=== PATIENT | male | born 1950 | race Caucasian/White ===

== ENCOUNTER 2018-12-11 10:22 | Inpatient (IN) | payer MEDICAID, OTHER ==
[~2018-12-11] VITALS: Ht 170.2 cm; Wt 103.0 kg
[~2018-12-11 10:22] MED LIST: ADVAIR 250-501 EACH INH; ALBUTEROL2.5 MG/3 M INH; AMBIEN5 MG ORAL; AZITHROMYCIN250 MG ORAL; AZITHROMYCIN500 MG ORAL; DOCUSATE SODIU100 MG ORAL; DULERA 100 MCG/13 GM INH; DULERA 200 MCG/13 GM IH; IBUPROFEN600 MG ORAL; NORCO 5-325 TA1 EACH ORAL; PREDNISONE20 MG ORAL; PROAIR HFA8.5 GM INH; SINGULAIR10 MG ORAL; SPIRIVA18 MCG INH
[2018-12-11] MEDS ORDERED: Solu-MEDROL 125mg Inj IVP ONE (11:00)
--- NOTE | 2018-12-11 11:10 | NUR ---
ED Nurse Note:pt. came with c/o SOB and COPD exacerbation for 3 days, blood was sent to labs and pt. placed on [employer] per Er MD order, respiratory called
[2018-12-11] MEDS: Ipratropium 0.02% Inh Soln 2.5ml UD HHN SCH ×3 (11:23→12:21)
[2018-12-11] MEDS: Albuterol ud Inhalation HHN SCH ×3 (11:23→12:21)
[2018-12-11 11:33] LABS: BASOPHILS % (AUTO) 1.2 % (0.0-2.0); EOSINOPHILS % (AUTO) 5.2 % (0.0-3.0); HEMATOCRIT 49.8 % (42.0-52.0); HEMOGLOBIN 16.3 G/DL (14.2-18.0); LYMPHOCYTES % (AUTO) 22.7 % (20.0-45.0); MEAN CORPUSCULAR VOLUME 93 FL (80-99); MONOCYTES % (AUTO) 7.5 % (1.0-10.0); NEUTROPHILS % (AUTO) 63.4 % (45.0-75.0); PLATELET COUNT 199 K/UL (150-450); RED BLOOD COUNT 5.37 M/UL (4.70-6.10); RED CELL DISTRIBUTION WIDTH 13.4 % (11.6-14.8); WHITE BLOOD COUNT 9.6 K/UL (4.8-10.8)
[2018-12-11 11:48] LABS: ANION GAP 5 mmol/L (5-15); BLOOD UREA NITROGEN 20 mg/dL (7-18); CALCIUM 8.8 MG/DL (8.5-10.1); CARBON DIOXIDE 29 MMOL/L (21-32); CHLORIDE 105 MMOL/L (98-107); CREATININE 1.2 MG/DL (0.55-1.30); POTASSIUM 4.2 MMOL/L (3.5-5.1); SODIUM 139 MMOL/L (136-145)
[2018-12-11 11:53] LABS: ALANINE AMINOTRANSFERASE 26 U/L (12-78); ALBUMIN 3.6 G/DL (3.4-5.0); ALBUMIN/GLOBULIN RATIO 1.1 (1.0-2.7); ALKALINE PHOSPHATASE 76 U/L (46-116); ASPARTATE AMINO TRANSFERASE 12 U/L (15-37); BILIRUBIN,TOTAL 0.4 MG/DL (0.2-1.0)
[2018-12-11 12:00] VITALS: BP 122/64
--- NOTE | 2018-12-11 12:24 | NUR ---
RESPIRATORY NOTE: Manually scanned last dose of breathing tx. Scanner not working
--- NOTE | 2018-12-11 12:39 | Diagnostic Imaging Report ---
Indication: Cough Comparison: 12/22/2015 A single view chest radiograph was obtained. Findings: Cardiomediastinal appearance is within normal limits for age. The lungs appear hyperinflated without infiltrate. Pulmonary vascularity is appropriate. The diaphragmatic contour is smooth and costophrenic angles are sharp. No pleural effusions are identified. The bones are unremarkable. Impression: No acute findings
--- NOTE | 2018-12-11 12:58 | NUR ---
ED Nurse Note: pt tolerating hhn well from resp therapist. pt aware and agrees to plan for hopital admission. no increased dyspnea c/o
[2018-12-11 13:00] VITALS: BP 122/64
[2018-12-11] MEDS ORDERED: Albuterol ud Inhalation HHN ONE (13:30)
--- NOTE | 2018-12-11 13:41 | Emergency Room Report ---
History of Present Illness General Chief Complaint: Upper Respiratory Illness Source: Patient Present Illness HPI Patient presents emergency department today complaint acute onset of shortness of breath. Patient states that he has a history of COPD has been using all his medications without improvement. States he feels really short of breath which is why he came for further evaluation. Patient states that he cannot ambulate he is coughing he cannot breathe. He complains of some yellowish sputum. No other complaints noted. Symptoms noted to be severe. Denies any leg pain leg swelling. No other modifying factors. No other associated signs and symptoms. No other complaints were noted. Allergies: Coded Allergies: No Known Allergies (Unverified , 09/12/11) Patient History Past Medical History: asthma, COPD Past Surgical History: none Pertinent Family History: none Social History: Denies: smoking, alcohol use, drug use Reviewed Nursing Documentation: PMH: Agreed; PSxH: Agreed Nursing Documentation-PMH Past Medical History: No History, Except For Hx Asthma: Yes Hx COPD: Yes Review of Systems All Other Systems: negative except mentioned in HPI Physical Exam Vital Signs Date Time Temp Pulse Resp B/P (MAP) Pulse Ox O2 Delivery O2 Flow Rate FiO2 12/11/18 10:27 98.4 70 19 121/82 (95) 89 Room Air 12/11/18 12:17 21 Sp02 EP Interpretation: reviewed, normal General Appearance: normal inspection, well appearing, no apparent distress, alert Head: atraumatic Eyes: bilateral eye normal inspection ENT: normal ENT inspection, hearing grossly normal, normal voice Neck: normal inspection, full range of motion, supple, no bony tend Respiratory: respiratory distress, decreased breath sounds, accessory muscle use, wheezing Cardiovascular #1: regular rate, rhythm, no edema Gastrointestinal: normal inspection, normal bowel sounds, non tender, soft, no guarding, no hernia Genitourinary: no CVA tenderness Musculoskeletal: normal inspection, back normal, normal range of motion Neurologic: normal inspection, alert, responsive, speech normal Psychiatric: normal inspection, judgement/insight normal, mood/affect normal Skin: no rash Procedures Critical Care Time Critical Care Time Patient had a critical medical condition which untreated could potentially result in life or limb threatening injury. Total critical care time excluding procedures was approximately 45 minutes. Medical Decision Making Diagnostic Impression: Primary Impression: COPD exacerbation Additional Impressions: Respiratory distress Hypoxia ER Course Patient presents emergency department today complaining of shortness of breath. Differential diagnoses include acute pneumonia, CHF, acute coronary syndrome, pneumothorax, asthma, COPD flare, just to name a few. Patient has severe shortness of breath. Was started on 3 treatments albuterol Atrovent as well as Solu-Medrol. Patient appeared to be improving and at first I thought patient could be admitted to [facility]. But unfortunately patient began to deteriorate again. O2 saturation dropped down to the low 90s. Because of that patient was started on albuterol treatment as scanned. Patient' s current O2 saturation is 91. Because of this patient was unstable for transfer. Case was discussed with patient's insurance group. Patient will be admitted here to telemetry of further management. Will admit the patient to because of call panel. Labs Test 12/11/18 11:20 White Blood Count 9.6 K/UL (4.8-10.8) Red Blood Count 5.37 M/UL (4.70-6.10) Hemoglobin 16.3 G/DL (14.2-18.0) Hematocrit 49.8 % (42.0-52.0) Mean Corpuscular Volume 93 FL (80-99) Mean Corpuscular Hemoglobin 30.3 PG (27.0-31.0) Mean Corpuscular Hemoglobin Concent 32.7 G/DL (32.0-36.0) Red Cell Distribution Width 13.4 % (11.6-14.8) Platelet Count 199 K/UL (150-450) Mean Platelet Volume 8.3 FL (6.5-10.1) Neutrophils (%) (Auto) 63.4 % (45.0-75.0) Lymphocytes (%) (Auto) 22.7 % (20.0-45.0) Monocytes (%) (Auto) 7.5 % (1.0-10.0) Eosinophils (%) (Auto) 5.2 % (0.0-3.0) Basophils (%) (Auto) 1.2 % (0.0-2.0) Sodium Level 139 MMOL/L (136-145) Potassium Level 4.2 MMOL/L (3.5-5.1) Chloride Level 105 MMOL/L (98-107) Carbon Dioxide Level 29 MMOL/L (21-32) Anion Gap 5 mmol/L (5-15) Blood Urea Nitrogen 20 mg/dL (7-18) Creatinine 1.2 MG/DL (0.55-1.30) Estimat Glomerular Filtration Rate > 60 mL/min (>60) Glucose Level 104 MG/DL (74-106) Calcium Level 8.8 MG/DL (8.5-10.1) Total Bilirubin 0.4 MG/DL (0.2-1.0) Aspartate Amino Transf (AST/SGOT) 12 U/L (15-37) Alanine Aminotransferase (ALT/SGPT) 26 U/L (12-78) Alkaline Phosphatase 76 U/L (46-116) Troponin I 0.002 ng/mL (0.000-0.056) Total Protein 7.0 G/DL (6.4-8.2) Albumin 3.6 G/DL (3.4-5.0) Globulin 3.4 g/dL Albumin/Globulin Ratio 1.1 (1.0-2.7) EKG Diagnostic Results Rate: normal Rhythm: NSR ST Segments: no acute changes Rhythm Strip Diag. Results EP Interpretation: yes Rate: 65 Rhythm: NSR, no PVC's, no ectopy Chest X-Ray Diagnostic Results Chest X-Ray Diagnostic Results : Chest X-Ray Ordered: Yes # of Views/Limited/Complete: 1 View Indication: Shortness of Breath EP Interpretation: Yes Interpretation: no consolidation, no effusion, no pneumothorax, no acute cardiopulmonary disease Impression: No acute disease Electronically Signed by: Electronically signed by Aj Yates MD Last Vital Signs Date Time Temp Pulse Resp B/P (MAP) Pulse Ox O2 Delivery O2 Flow Rate FiO2 12/11/18 12:17 68 19 100 Room Air 21 12/11/18 10:27 98.4 121/82 (95) Status: improved Disposition: ADMITTED INPATIENT Condition: Serious Referrals: [facility]ERR[facility] (PCP) Aj Yates MD Dec 11, 2018 13:41
[2018-12-11] MEDS ORDERED: Levofloxacin 500mg tab ORAL ONE (13:45)
--- NOTE | 2018-12-11 13:46 | History and Physical ---
History of Present Illness General Date patient seen: Dec 11, 2018 Reason for Hospitalization: Upper Respiratory Illness Present Illness HPI 68 year old male with history of Asthma/COPD on home oxygen presented to the emergency department with SOB, cough of yellow phlegm, without improvement with his home inhalers. He often uses steroids for exacerbations. He is unable cooper ambulate due to severe sob. No fevers or chills. No chest pain, palpitations, pnd, or orthopnea. He takes albuterol, Advair, montelukast and Ventolin at home. Denies any recent travel or sick contacts Past Medical History: Asthma, COPD Past Surgical History: none Family History: Asthma Social History: Denies: smoking, alcohol use, drug use Allergies: Coded Allergies: No Known Allergies (Unverified , 09/12/11) Medication History Scheduled Fluticasone/Salmeterol (Advair 250-50 Diskus), 1 PUFF INH EVERY 12 HOURS, ( Reported) Montelukast Sodium* (Singulair*), 10 MG ORAL QHS, (Reported) Umeclidinium [place] (Incruse Ellipta), 62.5 MCG IH DAILY, (Reported) Scheduled PRN Albuterol Sulfate* (Albuterol Sulfate Hhn*), 3 ML INH Q4H PRN for Shortness of Breath, (Reported) Albuterol Sulfate* (Albuterol Sulfate Mdi*), 2 PUFF INH Q4H PRN for Shortness of Breath, (Reported) Discontinued Medications Albuterol Sulfate* (Proair Hfa*), 1 PUFF INH Q6H PRN for Shortness of Breath Discontinued Reason: Pt stopped taking med Albuterol Sulfate* (Albuterol Sulfate Hhn*), 3 ML INH BID Discontinued Reason: Pt stopped taking med Albuterol Sulfate* (Proair Hfa*), 2 PUFFS INH Q6H Discontinued Reason: Pt stopped taking med Albuterol Sulfate* (Proair Hfa*), 2 PUFFS INH Q4H Discontinued Reason: Pt stopped taking med Albuterol Sulfate* (Albuterol Sulfate Hhn*), 3 ML INH Q4H PRN for Shortness of Breath Discontinued Reason: Pt stopped taking med Azithromycin (Azithromycin), 500 MG ORAL DAILY Discontinued Reason: Pt stopped taking med Azithromycin* (Zithromax*), 250 MG ORAL DAILY Discontinued Reason: Pt stopped taking med Docusate Sodium* (Docusate Sodium*), 100 MG ORAL DAILY Discontinued Reason: Pt stopped taking med Fluticasone/Salmeterol (Advair 250-50 Diskus), 1 PUFF INH EVERY 12 HOURS Discontinued Reason: Pt stopped taking med Fluticasone/Salmeterol (Advair 250-50 Diskus), 1 PUFF INH EVERY 12 HOURS Discontinued Reason: Pt stopped taking med Hydrocodone Bit/Acetaminophen 5-325* ([place] 5-325*), 1 TAB ORAL Q12HR PRN for For Pain Discontinued Reason: Pt stopped taking med Ibuprofen* (Motrin*), 600 MG ORAL Q8H PRN for For Pain Discontinued Reason: Pt stopped taking med Mometasone/Formoterol (Dulera 100 Mcg/5 Mcg Inhaler), 2 PUFFS INH EVERY 12 HOURS , (Reported) Discontinued Reason: Pt stopped taking med Mometasone/Formoterol (Dulera 200 Mcg/5 Mcg Inhaler), 13 GM IH BID Discontinued Reason: Pt stopped taking med Montelukast Sodium* (Singulair*), 10 MG ORAL DAILY Discontinued Reason: Pt stopped taking med Prednisone* (Prednisone*), 60 MG ORAL DAILY Discontinued Reason: Pt stopped taking med Prednisone* (Prednisone*), 20 MG ORAL BID Discontinued Reason: Pt stopped taking med Tiotropium [place]* (Spiriva*), 1 PUFF INH DAILY Discontinued Reason: Pt stopped taking med Tiotropium [place]* (Spiriva*), 1 PUFF INH DAILY Discontinued Reason: Pt stopped taking med Zolpidem Tartrate* (Ambien*), 5 MG ORAL BEDTIME PRN for Insomnia, (Reported) Discontinued Reason: Pt stopped taking med Patient History Healthcare decision maker Resuscitation status Advanced Directive on File Review of Systems Constitutional: Denies: no symptoms, see HPI, chills, sweats, fever, malaise, weakness, other Eye: Denies: no symptoms, see HPI, eye pain, blurred vision, tearing, double vision, nose pain, nose congestion, acuity changes, discharge, other Respiratory: Reports: no symptoms, see HPI, orthopnea, shortness of breath, stridor, VALDEZ, sputum - yellow , other Cardiovascular: Denies: no symptoms, see HPI, chest pain, edema, palpitations, syncope, PND, other Gastrointestinal: Denies: no symptoms, see HPI, abdominal pain, constipation, diarrhea, nausea, vomiting, melena, hematemesis, other Genitourinary: Denies: no symptoms, see HPI, discharge, dysuria, frequency, hematuria, pain, retention, incontinence, urgency, vag bleed/dc, other Musculoskeletal: Denies: no symptoms, see HPI, back pain, gout, joint pain, joint swelling, muscle pain, muscle stiffness, other Skin: Denies: no symptoms, see HPI, rash, change in color, change in hair/nails , dryness, lesions, other Psychiatric: Denies: no symptoms, see HPI, prior hx, anxiety, depressed feelings, emotional problems, SI, HI, hallucinations, other Neurological: Denies: no symptoms, see HPI, headache, numbness, paresthesia, seizure, tingling, tremors, focal weakness, syncope, dizziness, other Endocrine: Denies: no symptoms, see HPI, excessive sweating, flushing, intolerance to temperature, increased thirst, increased urine, unexplained weight loss, other Hematologic/Lymphatic: Denies: no symptoms, see HPI, anemia, blood clots, easy bleeding, easy bruising, swollen glands, diathesis, other Physical Exam Physical Exam Narrative General Appearance: normal inspection, well appearing, no apparent distress, alert HEENT: PERRLA Neck: No jvd Respiratory: respiratory distress, decreased end expiratory sounds, accessory muscle use, wheezing, rhonchi, speaks in short sentences Cardiovascular : regular rate, rhythm, no m/r/g, no edema Gastrointestinal: normal inspection, normal bowel sounds, non tender, soft, no guarding Musculoskeletal: normal inspection, back normal, normal range of motion Neurologic: grossly normal Psychiatric: judgement/insight normal, mood/affect normal Skin: no rash, no ulcer Last 24 Hour Vital Signs Date Time Temp Pulse Resp B/P (MAP) Pulse Ox O2 Delivery O2 Flow Rate FiO2 12/11/18 13:43 73 12 95 Room Air 21 71 11 90 12/11/18 12:17 68 19 100 Room Air 21 12/11/18 12:17 68 19 100 Room Air 21 12/11/18 10:30 70 19 Room Air 12/11/18 10:27 98.4 70 19 121/82 (95) 89 Room Air Laboratory Tests Test 12/11/18 11:20 White Blood Count 9.6 K/UL (4.8-10.8) Red Blood Count 5.37 M/UL (4.70-6.10) Hemoglobin 16.3 G/DL (14.2-18.0) Hematocrit 49.8 % (42.0-52.0) Mean Corpuscular Volume 93 FL (80-99) Mean Corpuscular Hemoglobin 30.3 PG (27.0-31.0) Mean Corpuscular Hemoglobin Concent 32.7 G/DL (32.0-36.0) Red Cell Distribution Width 13.4 % (11.6-14.8) Platelet Count 199 K/UL (150-450) Mean Platelet Volume 8.3 FL (6.5-10.1) Neutrophils (%) (Auto) 63.4 % (45.0-75.0) Lymphocytes (%) (Auto) 22.7 % (20.0-45.0) Monocytes (%) (Auto) 7.5 % (1.0-10.0) Eosinophils (%) (Auto) 5.2 % (0.0-3.0) H Basophils (%) (Auto) 1.2 % (0.0-2.0) Sodium Level 139 MMOL/L (136-145) Potassium Level 4.2 MMOL/L (3.5-5.1) Chloride Level 105 MMOL/L (98-107) Carbon Dioxide Level 29 MMOL/L (21-32) Anion Gap 5 mmol/L (5-15) Blood Urea Nitrogen 20 mg/dL (7-18) H Creatinine 1.2 MG/DL (0.55-1.30) Estimat Glomerular Filtration Rate > 60 mL/min (>60) Glucose Level 104 MG/DL (74-106) Calcium Level 8.8 MG/DL (8.5-10.1) Total Bilirubin 0.4 MG/DL (0.2-1.0) Aspartate Amino Transf (AST/SGOT) 12 U/L (15-37) L Alanine Aminotransferase (ALT/SGPT) 26 U/L (12-78) Alkaline Phosphatase 76 U/L (46-116) Troponin I 0.002 ng/mL (0.000-0.056) Total Protein 7.0 G/DL (6.4-8.2) Albumin 3.6 G/DL (3.4-5.0) Globulin 3.4 g/dL Albumin/Globulin Ratio 1.1 (1.0-2.7) Height (Feet): 5 Height (Inches): 7.00 Weight (Pounds): 220 Medications Current Medications Medications (Trade) Dose Ordered Sig/Hayley Route PRN Reason Start Time Stop Time Status Last Admin Dose Admin Levofloxacin (Levaquin) 500 mg ONCE ONCE ORAL 12/11/18 13:45 12/11/18 13:46 Objective Narrative ECG: strip reviewed by me: NSR at 65 bmpm, 1st degree AV block, QTC 435 ms CXR: Hyperinflated lungs, no consolidation or effusion Assessment/Plan Problem List: (1) COPD exacerbation ICD Codes: J44.1 - Chronic obstructive pulmonary disease with (acute) exacerbation SNOMED: 589341303 (2) Hypoxia ICD Codes: R09.02 - Hypoxemia SNOMED: 317676197 (3) Acute bronchitis ICD Codes: J20.9 - Acute bronchitis,unspecified SNOMED: 53852273 (4) Asthma ICD Codes: J45.909 - Unspecified asthma, uncomplicated SNOMED: 221321881 (5) Respiratory distress ICD Codes: R06.03 - Acute respiratory distress SNOMED: 998261535 Status: stable Assessment/Plan: 68 year old male with history of COPD on home oxygen admitted with Acute hypoxic respiratory failure due to COPD/Asthma exacerbation. Observation on telemetry IV methylpred 60 q 6hr, taper per clinical response IV Azithromycin 500mg daily Duonebs LABA/ICS-> continue home Advair hold home Spiriva since getting duonebs here continue montelukast pxx: vte ppx: heparin Gi ppx: famotidine Diet: Regular Disposition: Home I spent 70 minutes during this encounter. > 50% spent on counselling and care coordination. Case discussed with ER physician Dr. Yates, and RN. I spent an additional 31 minutes reviewing old records Time of this note may not reflect time of encounter Cl Kiser M.D. Dec 11, 2018 13:46
[2018-12-11 14:00] VITALS: BP 123/61
[2018-12-11] MEDS ORDERED: Milk of Magnesia 30ml Ud ORAL PRN (14:00)
[2018-12-11] MEDS ORDERED: Miralax 17gm pkt ORAL PRN (14:00)
[2018-12-11] MEDS ORDERED: HYDROmorphone 1mg/ml Carpuject IVP PRN (14:00)
[2018-12-11] MEDS ORDERED: LORazepam Inj 2mg/ml 1ml IV PRN (14:00)
[2018-12-11 15:00] VITALS: BP 120/58
--- NOTE | 2018-12-11 15:27 | NUR ---
ED Nurse Note: pt relates no hx admission <30 days and arrives from home. doesnt meet admission swab criteria.
[2018-12-11] MEDS ORDERED: SINGULAIR10 MG ORAL (15:33)
[2018-12-11] MEDS ORDERED: ADVAIR 250-501 EACH INH (15:33)
[2018-12-11] MEDS ORDERED: ALBUTEROL2.5 MG/3 M INH (15:33)
[2018-12-11] MEDS ORDERED: INCRUSE ELLI62.5 MCG IH (15:33)
[2018-12-11] MEDS ORDERED: ALBUTEROL SULF8.5 GM INH (15:33)
--- NOTE | 2018-12-11 15:34 | NUR ---
ED Nurse Note: pt relates he is feeling improved respiratory status but continued dyspnea noted when speaking full sentences and with movement.. med recon doen
--- NOTE | 2018-12-11 17:00 | NUR ---
NURSE NOTES: Patient received from Mariel. Patient stable AOx4 with no complaints of pain and no s/sx of distress. RR even and unlabored with BL wheezes. Pt wearing dentures. Phone at bedside. Call light within reach, bed low and locked. Will continue to monitor.
[2018-12-11] MEDS: Enoxaparin 40mg Inj SUBQ SCH (17:36)
--- NOTE | 2018-12-11 18:32 | NUR ---
CASE MANAGEMENT: REVIEW 68 Y/O MALE PRESENTED TO ED FROM HOME CC: SOB . COUGH X3 DAYS SI: COPD EXACERBATION T 98.4 HR 70 RR 19 BP 121/82 SAT 89% ROOM AIR 93% 2L/NC A-GAP 20 AST 12 IS: ATROVENT HHN X1 ALBUTEROL HHN X1 SOLU MEDROL IV X1 LEVAQUIN PO X1 PATIENT ADMITTED TO TELEMETRY UNIT 11/09/2018 DCP: PATIENT IS FROM HOME
[2018-12-11] MEDS: Albuterol/Ipratropium 3ml neb HHN PRN ×2 (19:43→23:58)
--- NOTE | 2018-12-11 19:53 | NUR ---
NURSE NOTES: Received patient from NEREYDA Bae. Patient in bed, resting comfortably. Talkative, AOx4, and able to make needs known. Patient ambulates with bathroom privileges. No signs of shortness of breath, distress, or pain noted. Patient on 2L NC, currently receiving breathing treatment. IV site checked, intact and patent, no signs of infiltration, bleeding, or redness noted. Bed in lowest position, brakes on, side rails up x2, and call light within reach. Will continue with plan of care.
[2018-12-11 20:00] VITALS: BP 137/66
--- NOTE | 2018-12-11 20:13 | NUR ---
HAND-OFF: Report given to Rosalia Rooney RN. Patient stable, receiving breathing treatment.
[2018-12-11] MEDS: Wixela 250/50 Inhaler - 60 dose INH SCH (21:00)
[2018-12-11] MEDS: Docusate 100mg cap ORAL SCH (21:00)
[2018-12-11] MEDS: Montelukast 10mg tablet ORAL SCH (21:14)
[2018-12-11] MEDS: Azithromycin 500 MG in D5W 275 ML IV SCH (21:15)
[2018-12-12] VITALS: BP 123/70
[2018-12-12 04:00] VITALS: BP 116/59
[2018-12-12] MEDS: Solu-MEDROL 125mg Inj IVP SCH ×4 (06:34→21:48)
--- NOTE | 2018-12-12 07:31 | NUR ---
HAND-OFF: Report given to NEREYDA Garza. Plan of care endorsed.
[2018-12-12] MEDS: Albuterol/Ipratropium 3ml neb HHN PRN ×2 (07:57→15:34)
[2018-12-12 08:00] VITALS: BP 124/66
[2018-12-12] MEDS: Wixela 250/50 Inhaler - 60 dose INH SCH ×2 (08:07→21:00)
--- NOTE | 2018-12-12 08:30 | NUR ---
NURSE NOTES: Recvd pt. Pt is AOX4, pt is on room air with no sign of sob or resp distress. Pt denies pain, n/v. Bed in lowest position, call light within reach, will continue with plan of care.
[2018-12-12 08:38] LABS: HEMATOCRIT 45.3 % (42.0-52.0); HEMOGLOBIN 15.3 G/DL (14.2-18.0); MEAN CORPUSCULAR VOLUME 91 FL (80-99); PLATELET COUNT 187 K/UL (150-450); RED BLOOD COUNT 4.95 M/UL (4.70-6.10); RED CELL DISTRIBUTION WIDTH 12.5 % (11.6-14.8); WHITE BLOOD COUNT 19.8 K/UL (4.8-10.8)
[2018-12-12] MEDS: Docusate 100mg cap ORAL SCH ×2 (09:00→20:38)
[2018-12-12 09:02] LABS: ANION GAP 5 mmol/L (5-15); BLOOD UREA NITROGEN 18 mg/dL (7-18); CALCIUM 8.9 MG/DL (8.5-10.1); CARBON DIOXIDE 29 MMOL/L (21-32); CHLORIDE 104 MMOL/L (98-107); CREATININE 1.1 MG/DL (0.55-1.30); POTASSIUM 4.4 MMOL/L (3.5-5.1); SODIUM 138 MMOL/L (136-145)
--- NOTE | 2018-12-12 10:23 | NUR ---
*-* NO INSRUANCE INFORMATION IN THE BAR UNABLE TO SEND CLINICALS OR REVIEWS *-*
[2018-12-12 12:01] VITALS: BP 126/62
--- NOTE | 2018-12-12 13:59 | General Progress Note ---
Assessment/Plan Problem List: (1) Hypoxia ICD Codes: R09.02 - Hypoxemia SNOMED: 311849155 (2) Acute bronchitis ICD Codes: J20.9 - Acute bronchitis,unspecified SNOMED: 75375659 (3) COPD exacerbation ICD Codes: J44.1 - Chronic obstructive pulmonary disease with (acute) exacerbation SNOMED: 138510890 (4) Asthma ICD Codes: J45.909 - Unspecified asthma, uncomplicated SNOMED: 824610651 Status: progressing Assessment/Plan: 68 year old male with history of COPD on home oxygen admitted with Acute hypoxic respiratory failure due to COPD/Asthma exacerbation. continue Observation on telemetry IV methylpred 60 q 6hr, taper per clinical response, taper to 60 q8hr IV Azithromycin 500mg daily Duonebs LABA/ICS-> continue home Advair hold home Spiriva since getting duonebs here continue montelukast O2 to keep sats 88-92% pxx: vte ppx: heparin Gi ppx: famotidine Diet: Regular Disposition: Home Subjective Date patient seen: Dec 12, 2018 ROS Limited/Unobtainable: No Constitutional: Denies: no symptoms, chills, diaphoresis, fever, malaise, weakness, other HEENT: Denies: no symptoms, eye pain, blurred vision, tearing, double vision, ear pain, ear discharge, nose pain, nose congestion, throat pain, throat swelling, mouth pain, mouth swelling, other Respiratory: Reports: no symptoms, orthopnea, SOB with excertion, SOB at rest, stridor, wheezing, other Gastrointestinal/Abdominal: Denies: no symptoms, abdomen distended, abdominal pain, black stools, tarry stools, blood in stool, constipated, diarrhea, difficulty swallowing, nausea, poor appetite, poor fluid intake, rectal bleeding , vomiting, other Genitourinary: Denies: no symptoms, burning, discharge, frequency, flank pain, hematuria, incontinence, pain, urgency, other Neurologic/Psychiatric: Denies: no symptoms, anxiety, depressed, emotional problems, headache, numbness, paresthesia, pre-existing deficit, seizure, tingling, tremors, weakness, other Endocrine: Denies: no symptoms, excessive sweating, flushing, intolerance to cold, intolerance to heat, increased hunger, increased thirst, increased urine, unexplained weight gain, unexplained weight loss, other Hematologic/Lymphatic: Denies: no symptoms, anemia, easy bleeding, easy bruising, other Allergies: Coded Allergies: No Known Allergies (Unverified , 09/12/11) Subjective feels slightly better, no acute overnight events Objective Last 24 Hour Vital Signs Date Time Temp Pulse Resp B/P (MAP) Pulse Ox O2 Delivery O2 Flow Rate FiO2 12/12/18 12:01 97.8 94 20 126/62 (83) 95 12/12/18 12:00 74 12/12/18 09:00 Nasal Cannula 2.0 12/12/18 08:07 64 18 98 Nasal Cannula 2.0 28 12/12/18 08:07 63 18 99 Nasal Cannula 2.0 28 12/12/18 08:00 97.9 68 18 124/66 (85) 95 12/12/18 08:00 63 12/12/18 07:57 64 20 95 Nasal Cannula 2.0 28 12/12/18 07:57 65 18 99 Nasal Cannula 2.0 28 64 18 95 12/12/18 04:00 61 12/12/18 04:00 97.1 72 18 116/59 (78) 96 12/12/18 00:00 98.1 81 18 123/70 (87) 95 12/12/18 00:00 83 12/11/18 23:58 79 18 99 Nasal Cannula 2.0 28 77 18 96 12/11/18 21:00 Nasal Cannula 2.0 12/11/18 20:00 89 12/11/18 20:00 97.8 85 22 137/66 (89) 94 12/11/18 19:46 80 20 92 Nasal Cannula 2.0 28 12/11/18 19:43 83 18 98 Nasal Cannula 2.0 28 80 18 92 12/11/18 17:00 Nasal Cannula 2.0 12/11/18 15:43 83 21 120/58 96 Nasal Cannula 2.0 21 12/11/18 15:00 83 21 120/58 96 Nasal Cannula 2.0 12/11/18 14:00 73 21 123/61 98 Nasal Cannula 2.0 Intake and Output 12/11/18 12/12/18 19:00 07:00 Intake Total 240 ml 755 ml Balance 240 ml 755 ml Intake Oral 240 ml 480 ml IV Total 275 ml # Voids 3 Laboratory Tests 12/12/18 07:55: White Blood Count 19.8#H, Red Blood Count 4.95, Hemoglobin 15.3, Hematocrit 45.3 , Mean Corpuscular Volume 91, Mean Corpuscular Hemoglobin 31.0, Mean Corpuscular Hemoglobin Concent 33.9, Red Cell Distribution Width 12.5, Platelet Count 187, Mean Platelet Volume 9.2, Neutrophils (%) (Auto) , Lymphocytes (%) ( Auto) , Monocytes (%) (Auto) , Eosinophils (%) (Auto) , Basophils (%) (Auto) , Differential Total Cells Counted 100, Neutrophils % (Manual) 89H, Lymphocytes % (Manual) 4L, Monocytes % (Manual) 6, Eosinophils % (Manual) 1, Basophils % ( Manual) 0, Band Neutrophils 0, Platelet Estimate Adequate, Platelet Morphology Normal, Sodium Level 138, Potassium Level 4.4, Chloride Level 104, Carbon Dioxide Level 29, Anion Gap 5, Blood Urea Nitrogen 18, Creatinine 1.1, Estimat Glomerular Filtration Rate > 60, Glucose Level 194H, Calcium Level 8.9 Height (Feet): 5 Height (Inches): 7.00 Weight (Pounds): 220 Objective General Appearance: normal inspection, well appearing, no apparent distress, alert HEENT: PERRLA Neck: No jvd Respiratory: respiratory distress, decreased end expiratory sounds, accessory muscle use, wheezing, rhonchi,- improving Cardiovascular : regular rate, rhythm, no m/r/g, no edema Gastrointestinal: normal inspection, normal bowel sounds, non tender, soft, no guarding Musculoskeletal: normal inspection, back normal, normal range of motion Neurologic: grossly normal Psychiatric: judgement/insight normal, mood/affect normal Skin: no rash, no ulcer Cl Kiser M.D. Dec 12, 2018 13:59
--- NOTE | 2018-12-12 14:45 | NUR ---
CASE MANAGEMENT: REVIEW 12/12/18 SI: COPD EXACERBATION 97.9 68 18 124/66 95% NC 2L WBC 19.8 IS: IV AZITHROMYCIN Q24HR GRANIX SQ QHS TOPROL PO QD LOPRESSOR Q6H LOVENOX SQ Q24HR FLUTICASONE INH Q12HR SINGULAIR PO QHS ALBUTEROL HHN Q4HR/PRN COLACE PO Q12HR : 2E TELE UNIT DCP: PATIENT IS FROM HOME
[2018-12-12 15:55] VITALS: BP 140/80
[2018-12-12] MEDS: NovoLOG Insulin Flexpen SUBQ SCH ×2 (16:09→20:39)
[2018-12-12] MEDS: Enoxaparin 40mg Inj SUBQ SCH (17:00)
--- NOTE | 2018-12-12 19:25 | NUR ---
NURSE NOTES: Received patient from NEREYDA Garza. Patient awake, talkative, and resting in bed comfortably. No signs of distress, shortness of breath, or pain noted. Patient ambulates and is able to make needs known. Patient on 2L nasal canula. IV site checked, intact and patent, no signs of infiltration, redness, or bleeding. Bed in lowest position, brakes on, side rails up x2, and call light within reach. Will continue with plan of care.
[2018-12-12 20:00] VITALS: BP 147/69
[2018-12-12] MEDS: Montelukast 10mg tablet ORAL SCH (20:38)
[2018-12-12] MEDS: Azithromycin 500 MG in D5W 275 ML IV SCH (20:39)
[2018-12-13] VITALS: BP 129/66
[2018-12-13 04:00] VITALS: BP 122/66
[2018-12-13] MEDS: Albuterol/Ipratropium 3ml neb HHN PRN ×2 (04:01→15:25)
[2018-12-13] MEDS: Solu-MEDROL 125mg Inj IVP SCH ×3 (06:37→21:07)
--- NOTE | 2018-12-13 07:05 | NUR ---
HAND-OFF: Report given to NEREYDA Arellano. Plan of care endorsed.
[2018-12-13] MEDS: NovoLOG Insulin Flexpen SUBQ SCH ×4 (07:26→21:06)
--- NOTE | 2018-12-13 07:41 | NUR ---
NURSE NOTES: Report received from NEREYDA Lindsey. Pt shows no signs of distress, A+Ox4, denies pain/SOB. Respirations are even and unlabored on room air. IV site is patent and running fluids @ prescribed rate. Bed is at lowest position, brakes engaged, siderails x2, bed alarm on, and call light within reach. Pt is in stable condition at this time; will continue to monitor.
[2018-12-13 08:00] VITALS: BP 128/69
[2018-12-13] MEDS: Docusate 100mg cap ORAL SCH ×2 (08:00→21:06)
--- NOTE | 2018-12-13 09:59 | NUR ---
*-* NO INSURANCE INFORMATION IN THE BAR UNABLE TO SEND CLINICALS OR REVIEWS *-*
[2018-12-13] MEDS: Wixela 250/50 Inhaler - 60 dose INH SCH ×2 (10:02→21:15)
--- NOTE | 2018-12-13 10:04 | History and Physical ---
History of Present Illness General Date patient seen: Dec 13, 2018 Reason for Hospitalization: Upper Respiratory Illness Present Illness HPI 68 year old male with history of Asthma/COPD on home oxygen presented to the emergency department with SOB, cough of yellow phlegm, without improvement with his home inhalers. He often uses steroids for exacerbations. He is unable cooper ambulate due to severe sob. No fevers or chills. No chest pain, palpitations, pnd, or orthopnea. He takes albuterol, Advair, montelukast and Ventolin at home. Denies any recent travel or sick contacts. Patient initially placed on observation, telemetry, started on IV steroids and IV antibiotics. Today he's still wheezing, very short of breath with minimal exertion. He requires to remain in the hospital for further treatment. Past Medical History: Asthma, COPD Past Surgical History: none Family History: Asthma Social History: Denies: smoking, alcohol use, drug use Allergies: Coded Allergies: No Known Allergies (Unverified , 09/12/11) Medication History Scheduled Fluticasone/Salmeterol (Advair 250-50 Diskus), 1 PUFF INH EVERY 12 HOURS, ( Reported) Montelukast Sodium* (Singulair*), 10 MG ORAL QHS, (Reported) Umeclidinium [place] (Incruse Ellipta), 62.5 MCG IH DAILY, (Reported) Scheduled PRN Albuterol Sulfate* (Albuterol Sulfate Hhn*), 3 ML INH Q4H PRN for Shortness of Breath, (Reported) Albuterol Sulfate* (Albuterol Sulfate Mdi*), 2 PUFF INH Q4H PRN for Shortness of Breath, (Reported) Discontinued Medications Albuterol Sulfate* (Proair Hfa*), 1 PUFF INH Q6H PRN for Shortness of Breath Discontinued Reason: Pt stopped taking med Albuterol Sulfate* (Albuterol Sulfate Hhn*), 3 ML INH BID Discontinued Reason: Pt stopped taking med Albuterol Sulfate* (Proair Hfa*), 2 PUFFS INH Q6H Discontinued Reason: Pt stopped taking med Albuterol Sulfate* (Proair Hfa*), 2 PUFFS INH Q4H Discontinued Reason: Pt stopped taking med Albuterol Sulfate* (Albuterol Sulfate Hhn*), 3 ML INH Q4H PRN for Shortness of Breath Discontinued Reason: Pt stopped taking med Azithromycin (Azithromycin), 500 MG ORAL DAILY Discontinued Reason: Pt stopped taking med Azithromycin* (Zithromax*), 250 MG ORAL DAILY Discontinued Reason: Pt stopped taking med Docusate Sodium* (Docusate Sodium*), 100 MG ORAL DAILY Discontinued Reason: Pt stopped taking med Fluticasone/Salmeterol (Advair 250-50 Diskus), 1 PUFF INH EVERY 12 HOURS Discontinued Reason: Pt stopped taking med Fluticasone/Salmeterol (Advair 250-50 Diskus), 1 PUFF INH EVERY 12 HOURS Discontinued Reason: Pt stopped taking med Hydrocodone Bit/Acetaminophen 5-325* ([place] 5-325*), 1 TAB ORAL Q12HR PRN for For Pain Discontinued Reason: Pt stopped taking med Ibuprofen* (Motrin*), 600 MG ORAL Q8H PRN for For Pain Discontinued Reason: Pt stopped taking med Mometasone/Formoterol (Dulera 100 Mcg/5 Mcg Inhaler), 2 PUFFS INH EVERY 12 HOURS , (Reported) Discontinued Reason: Pt stopped taking med Mometasone/Formoterol (Dulera 200 Mcg/5 Mcg Inhaler), 13 GM IH BID Discontinued Reason: Pt stopped taking med Montelukast Sodium* (Singulair*), 10 MG ORAL DAILY Discontinued Reason: Pt stopped taking med Prednisone* (Prednisone*), 60 MG ORAL DAILY Discontinued Reason: Pt stopped taking med Prednisone* (Prednisone*), 20 MG ORAL BID Discontinued Reason: Pt stopped taking med Tiotropium Meigs* (Spiriva*), 1 PUFF INH DAILY Discontinued Reason: Pt stopped taking med Tiotropium Me[place]* (Spiriva*), 1 PUFF INH DAILY Discontinued Reason: Pt stopped taking med Zolpidem Tartrate* (Ambien*), 5 MG ORAL BEDTIME PRN for Insomnia, (Reported) Discontinued Reason: Pt stopped taking med Patient History Healthcare decision maker Resuscitation status Full Code Advanced Directive on File No Review of Systems Constitutional: Denies: no symptoms, see HPI, chills, sweats, fever, malaise, weakness, other Eye: Denies: no symptoms, see HPI, eye pain, blurred vision, tearing, double vision, nose pain, nose congestion, acuity changes, discharge, other ENT: Denies: no symptoms, see HPI, ear pain, ear discharge, nose pain, nose congestion, throat pain, throat swelling, mouth pain, hearing loss, nasal discharge, other Respiratory: Reports: no symptoms, see HPI, orthopnea, stridor, wheezing, sputum, other Cardiovascular: Denies: no symptoms, see HPI, chest pain, edema, palpitations, syncope, PND, other Gastrointestinal: Denies: no symptoms, see HPI, abdominal pain, constipation, diarrhea, nausea, vomiting, melena, hematemesis, other Genitourinary: Denies: no symptoms, see HPI, discharge, dysuria, frequency, hematuria, pain, retention, incontinence, urgency, vag bleed/dc, other Musculoskeletal: Denies: no symptoms, see HPI, back pain, gout, joint pain, joint swelling, muscle pain, muscle stiffness, other Skin: Denies: no symptoms, see HPI, rash, change in color, change in hair/nails , dryness, lesions, other Psychiatric: Denies: no symptoms, see HPI, prior hx, anxiety, depressed feelings, emotional problems, SI, HI, hallucinations, other Neurological: Denies: no symptoms, see HPI, headache, numbness, paresthesia, seizure, tingling, tremors, focal weakness, syncope, dizziness, other Endocrine: Denies: no symptoms, see HPI, excessive sweating, flushing, intolerance to temperature, increased thirst, increased urine, unexplained weight loss, other Physical Exam Physical Exam Narrative General Appearance: normal inspection, well appearing, no apparent distress, alert HEENT: PERRLA Neck: No jvd Respiratory: mild respiratory distress, decreased end expiratory sounds, accessory muscle use, wheezing, rhonchi,- improving Cardiovascular : regular rate, rhythm, no m/r/g, no edema Gastrointestinal: normal inspection, normal bowel sounds, non tender, soft, no guarding Musculoskeletal: normal inspection, back normal, normal range of motion Neurologic: grossly normal Psychiatric: judgement/insight normal, mood/affect normal Skin: no rash, no ulcer Last 24 Hour Vital Signs Date Time Temp Pulse Resp B/P (MAP) Pulse Ox O2 Delivery O2 Flow Rate FiO2 12/13/18 08:00 97.5 68 18 128/69 (88) 96 12/13/18 08:00 81 12/13/18 04:08 Nasal Cannula 12/13/18 04:08 Nasal Cannula 12/13/18 04:01 83 18 98 Nasal Cannula 2.0 28 78 18 91 12/13/18 04:00 97.8 81 18 122/66 (84) 95 12/13/18 04:00 71 12/13/18 00:00 73 12/13/18 00:00 98.5 77 18 129/66 (87) 95 12/12/18 21:00 Nasal Cannula 2.0 12/12/18 20:00 98.5 80 18 147/69 (95) 95 12/12/18 20:00 86 12/12/18 16:00 95 12/12/18 15:55 97.8 83 18 140/80 (100) 95 12/12/18 15:34 83 18 98 Nasal Cannula 2.0 28 81 18 93 12/12/18 12:01 97.8 94 20 126/62 (83) 95 12/12/18 12:00 74 Intake and Output 12/12/18 12/13/18 19:00 07:00 Intake Total 360 ml 515 ml Balance 360 ml 515 ml Intake Oral 360 ml 240 ml IV Total 275 ml # Voids 4 2 Laboratory Tests Test 12/13/18 05:45 Hemoglobin A1c 6.3 % (4.3-6.0) H Height (Feet): 5 Height (Inches): 7.00 Weight (Pounds): 227 Medications Current Medications Medications (Trade) Dose Ordered Sig/Hayley Route PRN Reason Start Time Stop Time Status Last Admin Dose Admin Acetaminophen (Tylenol) 650 mg Q4H PRN ORAL Mild Pain (Pain Scale 1-3) 12/11/18 14:00 01/10/19 13:59 Acetaminophen (Tylenol) 650 mg Q4H PRN ORAL fever 12/11/18 14:00 01/10/19 13:59 Albuterol/ Ipratropium (Albuterol/ Ipratropium) 3 ml Q4H PRN HHN Shortness of Breath 12/11/18 14:00 12/16/18 13:59 12/13/18 04:01 Azithromycin 500 mg/Dextrose 275 ml @ 275 mls/hr Q24HRS IV 12/11/18 21:00 12/17/18 21:59 12/12/18 20:39 Bisacodyl (Dulcolax) 10 mg HSPRN PRN RECTAL Constipation 12/11/18 14:00 12/4/19 13:59 Dextrose (Dextrose 50%) 25 ml Q30M PRN IV Hypoglycemia 12/12/18 15:30 01/11/19 15:29 Dextrose (Dextrose 50%) 50 ml Q30M PRN IV Hypoglycemia 12/12/18 15:30 01/11/19 15:29 Diphenhydramine HCl (Benadryl) 25 mg Q6H PRN ORAL Itching/Pruritis 12/11/18 14:00 01/10/19 13:59 Docusate Sodium (Colace) 100 mg EVERY 12 HOURS ORAL 12/11/18 21:00 01/10/19 20:59 12/13/18 08:00 Enoxaparin Sodium (Lovenox) 40 mg Q24H SUBQ 12/11/18 17:00 01/10/19 16:59 12/12/18 17:00 Hydromorphone HCl (Dilaudid) 1 mg Q4H PRN IVP Moderate Pain (Pain Scale 4-6) 12/11/18 14:00 12/18/18 13:59 Hydromorphone HCl (Dilaudid) 2 mg Q4H PRN IVP Severe Pain (Pain Scale 7-10) 12/11/18 14:00 12/18/18 13:59 Insulin Aspart (NovoLOG) BEFORE MEALS AND HS SUBQ 12/12/18 16:30 01/11/19 16:29 12/13/18 07:26 Lorazepam (Ativan 2mg/ml 1ml) 0.5 mg Q4H PRN IV For Anxiety 12/11/18 14:00 12/18/18 13:59 Magnesium Hydroxide (Mom) 30 ml HSPRN PRN ORAL Constipation 12/11/18 14:00 01/10/19 13:59 Methylprednisolone Sodium Succinate (Solu-MEDROL) 60 mg EVERY 8 HOURS IVP 12/12/18 22:00 01/11/19 00:00 12/13/18 06:37 Montelukast Sodium (Singulair) 10 mg QHS ORAL 12/11/18 21:00 01/10/19 20:59 12/12/18 20:38 Ondansetron HCl (Zofran) 4 mg Q6H PRN IVP Nausea & Vomiting 12/11/18 14:00 01/10/19 13:59 Polyethylene Glycol (Miralax) 17 gm HSPRN PRN ORAL Constipation 12/11/18 14:00 01/10/19 13:59 Salmeterol Xinafoate/ Fluticasone (Advair 250/50 Diskus) 2 puffs EVERY 12 HOURS INH 12/11/18 21:00 01/10/19 20:59 12/13/18 10:02 Temazepam (Restoril) 15 mg HSPRN PRN ORAL Insomnia 12/11/18 14:00 12/18/18 13:59 12/12/18 20:38 Assessment/Plan Problem List: (1) Hypoxia ICD Codes: R09.02 - Hypoxemia SNOMED: 100425621 (2) Acute bronchitis ICD Codes: J20.9 - Acute bronchitis,unspecified SNOMED: 60857696 (3) COPD exacerbation ICD Codes: J44.1 - Chronic obstructive pulmonary disease with (acute) exacerbation SNOMED: 642593135 (4) Asthma ICD Codes: J45.909 - Unspecified asthma, uncomplicated SNOMED: 855659744 Assessment/Plan: 68 year old male with history of COPD on home oxygen admitted with Acute hypoxic respiratory failure due to COPD/Asthma exacerbation. Admit to telemetry IV methylpred 60 q 6hr, taper per clinical response, tapered to 60 q8hr IV Azithromycin 500mg daily for 5 days Duonebs LABA/ICS-> continue home Advair hold home Spiriva since getting duonebs here continue montelukast O2 to keep sats 88-92% pxx: vte ppx: heparin Gi ppx: famotidine Diet: Regular Disposition: Home I spent 70 minutes on this encounter. >50% spent on care coordination and counselling. D/W RN Time of this note may not reflect time of encounter Cl Kiser M.D. Dec 13, 2018 10:04
[2018-12-13 12:00] VITALS: BP 137/52
--- NOTE | 2018-12-13 13:38 | NUR ---
*-* INSURANCE *-* ALL AVAILABLE CLINICALS HAVE BEEN FAXED TO: [facility] [phone] SPOKE TO :KENDRA MANAGER PEDIATRIC: TERESA:EXT 1886 WILL BE WAITING FOR PT CLINICALS TO REVIEW FOR IN PT STAY FAX TO [phone]
--- NOTE | 2018-12-13 15:46 | NUR ---
CASE MANAGEMENT: REVIEW 12/13/18 SI: COPD EXACERBATION 97.5 68 18 128/69 96% NC 2L IS: IV SOLUMEDROL Q8HR IV AZITHROMYCIN Q24HR LOVENOX SQ Q24HR ALBUTEROL HHN Q4HR ADVAIR INH Q12HR SINGULAR PO QHS :2E TELE UNIT DCP: HOME WHEN MEDICALLY CLEARED
[2018-12-13 16:00] VITALS: BP 118/71
[2018-12-13 16:02] LABS: HEMATOCRIT 43.3 % (42.0-52.0); HEMOGLOBIN 15.1 G/DL (14.2-18.0); MEAN CORPUSCULAR VOLUME 90 FL (80-99); PLATELET COUNT 196 K/UL (150-450); RED CELL DISTRIBUTION WIDTH 11.6 % (11.6-14.8); WHITE BLOOD COUNT 20.4 K/UL (4.8-10.8)
[2018-12-13 16:04] LABS: ANION GAP 2 mmol/L (5-15); BLOOD UREA NITROGEN 22 mg/dL (7-18); CALCIUM 8.8 MG/DL (8.5-10.1); CARBON DIOXIDE 28 MMOL/L (21-32); CHLORIDE 104 MMOL/L (98-107); POTASSIUM 4.7 MMOL/L (3.5-5.1); SODIUM 134 MMOL/L (136-145)
[2018-12-13] MEDS ORDERED: NS 250 ML IVPB ONE (16:15)
[2018-12-13] MEDS: Enoxaparin 40mg Inj SUBQ SCH (16:33)
--- NOTE | 2018-12-13 19:20 | NUR ---
HAND-OFF: Report given to Ambar Austin. Pt is in stable condition; plan of care endorsed.
--- NOTE | 2018-12-13 19:55 | NUR ---
NURSE NOTES: Report received from Eileen DAWN. Patient is observed in bed, asleep but arousable by voice. Respiratory even and unlabored. IV site is asymptomatic, patent, and intact. Denies pain at this time. Bed is in lowest position with side rails up x2 and brakes are engaged. Bed alarm is on. Encouraged pt to use call light when in need of assistance; pt verbalized understanding. Will continue to monitor.
[2018-12-13] MEDS: Montelukast 10mg tablet ORAL SCH (21:06)
[2018-12-13] MEDS: Azithromycin 500 MG in D5W 275 ML IV SCH (21:07)
--- NOTE | 2018-12-14 | NUR ---
NURSE NOTES: Patient is asleep but arousable by voice. Denies pain at this time. Will continue to monitor.
[2018-12-14 00:10] VITALS: BP 136/74
[2018-12-14 04:00] VITALS: BP 119/70
[2018-12-14] MEDS: Solu-MEDROL 125mg Inj IVP SCH ×2 (06:18→21:09)
[2018-12-14] MEDS: NovoLOG Insulin Flexpen SUBQ SCH ×4 (06:18→21:12)
[2018-12-14 06:21] LABS: HEMATOCRIT 45.4 % (42.0-52.0); HEMOGLOBIN 15.3 G/DL (14.2-18.0); MEAN CORPUSCULAR VOLUME 93 FL (80-99); PLATELET COUNT 186 K/UL (150-450); RED BLOOD COUNT 4.89 M/UL (4.70-6.10); RED CELL DISTRIBUTION WIDTH 12.9 % (11.6-14.8)
[2018-12-14 06:54] LABS: ANION GAP 5 mmol/L (5-15); BLOOD UREA NITROGEN 21 mg/dL (7-18); CALCIUM 9.1 MG/DL (8.5-10.1); CARBON DIOXIDE 30 MMOL/L (21-32); CHLORIDE 106 MMOL/L (98-107); POTASSIUM 4.7 MMOL/L (3.5-5.1); SODIUM 141 MMOL/L (136-145)
--- NOTE | 2018-12-14 07:18 | NUR ---
HAND-OFF: Report given to Tyrese DAWN. Patient is in stable condition.
--- NOTE | 2018-12-14 07:20 | NUR ---
NURSE NOTES: Report received from NEREYDA Austin. Patient is in high-peguero's position, eating breakfast. Patient is AAO x 4. Respiratory even and unlabored. IV site is asymptomatic, patent, and intact. Denies pain at this time. Patient is breathing even and unlabored on room air. Bed is in lowest position with side rails up x2 and brakes are engaged. Bed alarm is on. Encouraged pt to use call light when in need of assistance; pt verbalized understanding. Will continue to monitor.
[2018-12-14 08:00] VITALS: BP 126/75
--- NOTE | 2018-12-14 08:20 | NUR ---
NURSE NOTES: Called respiratory for PRN breathing treatment for patient.
[2018-12-14] MEDS: Docusate 100mg cap ORAL SCH ×3 (08:49→21:10)
[2018-12-14] MEDS: Wixela 250/50 Inhaler - 60 dose INH SCH ×2 (09:00→20:06)
--- NOTE | 2018-12-14 10:26 | General Progress Note ---
Assessment/Plan Problem List: (1) Hypoxia ICD Codes: R09.02 - Hypoxemia SNOMED: 335629267 (2) Acute bronchitis ICD Codes: J20.9 - Acute bronchitis,unspecified SNOMED: 07234130 (3) COPD exacerbation ICD Codes: J44.1 - Chronic obstructive pulmonary disease with (acute) exacerbation SNOMED: 040961352 (4) Asthma ICD Codes: J45.909 - Unspecified asthma, uncomplicated SNOMED: 833649518 (5) Pre-diabetes ICD Codes: R73.03 - Prediabetes SNOMED: 717840645 Status: progressing Assessment/Plan: 68 year old male with history of COPD on home oxygen admitted with Acute hypoxic respiratory failure due to COPD/Asthma exacerbation. Admit to telemetry IV methylpred 60 q 6hr--> 60 q12, taper per clinical response IV Azithromycin 500mg daily for 5 days Duonebs LABA/ICS-> continue home Advair hold home Spiriva since getting duonebs here continue montelukast O2 to keep sats 88-92% monitor vitals, leukocytosis likely from steroids Pre-DM: patient counselled regarding life style modifications pxx: vte ppx: heparin Gi ppx: famotidine Diet: Regular Disposition: Home estimated discharge date: 12/15 I spent 70 minutes on this encounter. >50% spent on care coordination and counselling. D/W RN Time of this note may not reflect time of encounter Subjective Date patient seen: Dec 14, 2018 ROS Limited/Unobtainable: No Constitutional: Denies: no symptoms, chills, diaphoresis, fever, malaise, weakness, other HEENT: Denies: no symptoms, eye pain, blurred vision, tearing, double vision, ear pain, ear discharge, nose pain, nose congestion, throat pain, throat swelling, mouth pain, mouth swelling, other Cardiovascular: Denies: no symptoms, chest pain, edema, irregular heart rate, lightheadedness, palpitations, syncope, other Respiratory: Reports: no symptoms, cough, orthopnea, SOB at rest, sputum, stridor, other Gastrointestinal/Abdominal: Denies: no symptoms, abdomen distended, abdominal pain, black stools, tarry stools, blood in stool, constipated, diarrhea, difficulty swallowing, nausea, poor appetite, poor fluid intake, rectal bleeding , vomiting, other Genitourinary: Denies: no symptoms, burning, discharge, frequency, flank pain, hematuria, incontinence, pain, urgency, other Neurologic/Psychiatric: Denies: no symptoms, anxiety, depressed, emotional problems, headache, numbness, paresthesia, pre-existing deficit, seizure, tingling, tremors, weakness, other Hematologic/Lymphatic: Denies: no symptoms, anemia, easy bleeding, easy bruising, other Allergies: Coded Allergies: No Known Allergies (Unverified , 09/12/11) Subjective feels somewhat better, still wheezing. ambulating to the bathroom, has multiple BMs. No fevers. Coughing now, thinks may be bringing things up. Leukocytosis likely reactive Objective Last 24 Hour Vital Signs Date Time Temp Pulse Resp B/P (MAP) Pulse Ox O2 Delivery O2 Flow Rate FiO2 12/14/18 09:00 Nasal Cannula 2.0 12/14/18 08:50 76 16 98 Nasal Cannula 2.0 28 12/14/18 08:50 76 16 97 Nasal Cannula 2.0 28 12/14/18 08:00 98.1 65 20 126/75 (92) 95 12/14/18 07:50 60 12/14/18 04:36 57 12/14/18 04:00 98.0 67 18 119/70 (86) 97 12/14/18 00:10 98.0 70 18 136/74 (94) 95 12/13/18 23:29 56 12/13/18 21:18 78 16 98 Nasal Cannula 2.0 28 12/13/18 21:17 74 16 97 Nasal Cannula 2.0 28 12/13/18 20:13 Nasal Cannula 2.0 12/13/18 19:00 71 12/13/18 16:00 70 12/13/18 16:00 97.3 70 18 118/71 (87) 93 12/13/18 15:25 85 18 99 Nasal Cannula 2.0 28 82 18 97 12/13/18 12:00 71 12/13/18 12:00 97.5 71 19 137/52 (80) 96 Intake and Output 12/13/18 12/14/18 18:59 06:59 Intake Total 1100 ml Balance 1100 ml Intake Oral 1100 ml # Voids 5 3 Laboratory Tests 12/13/18 15:30: White Blood Count 20.4H, Red Blood Count 4.80, Hemoglobin 15.1, Hematocrit 43.3 , Mean Corpuscular Volume 90, Mean Corpuscular Hemoglobin 31.4H, Mean Corpuscular Hemoglobin Concent 34.9, Red Cell Distribution Width 11.6, Platelet Count 196, Mean Platelet Volume 8.8, Neutrophils (%) (Auto) , Lymphocytes (%) ( Auto) , Monocytes (%) (Auto) , Eosinophils (%) (Auto) , Basophils (%) (Auto) , Differential Total Cells Counted 100, Neutrophils % (Manual) 94H, Lymphocytes % (Manual) 4L, Monocytes % (Manual) 1, Eosinophils % (Manual) 0, Basophils % ( Manual) 0, Band Neutrophils 1, Platelet Estimate Adequate, Platelet Morphology Normal, Red Blood Cell Morphology Normal, Sodium Level 134L, Potassium Level 4.7 , Chloride Level 104, Carbon Dioxide Level 28, Anion Gap 2L, Blood Urea Nitrogen 22H, Creatinine 1.0, Estimat Glomerular Filtration Rate > 60, Glucose Level 278H, Calcium Level 8.8 12/14/18 05:45: White Blood Count 20.0H, Red Blood Count 4.89, Hemoglobin 15.3, Hematocrit 45.4 , Mean Corpuscular Volume 93, Mean Corpuscular Hemoglobin 31.4H, Mean Corpuscular Hemoglobin Concent 33.8, Red Cell Distribution Width 12.9, Platelet Count 186, Mean Platelet Volume 8.4, Neutrophils (%) (Auto) , Lymphocytes (%) ( Auto) , Monocytes (%) (Auto) , Eosinophils (%) (Auto) , Basophils (%) (Auto) , Differential Total Cells Counted 100, Neutrophils % (Manual) 89H, Lymphocytes % (Manual) 5L, Monocytes % (Manual) 5, Eosinophils % (Manual) 1, Basophils % ( Manual) 0, Band Neutrophils 0, Platelet Estimate Adequate, Platelet Morphology Normal, Red Blood Cell Morphology Normal, Sodium Level 141, Potassium Level 4.7 , Chloride Level 106, Carbon Dioxide Level 30, Anion Gap 5, Blood Urea Nitrogen 21H, Creatinine 1.0, Estimat Glomerular Filtration Rate > 60, Glucose Level 144# H, Calcium Level 9.1 Height (Feet): 5 Height (Inches): 7.00 Weight (Pounds): 227 Objective General Appearance: normal inspection, well appearing, no apparent distress, alert HEENT: PERRLA Neck: No jvd Respiratory: respiratory distress, decreased end expiratory sounds, accessory muscle use, wheezing, rhonchi,- improving Cardiovascular : regular rate, rhythm, no m/r/g, no edema Gastrointestinal: normal inspection, normal bowel sounds, non tender, soft, no guarding Musculoskeletal: normal inspection, back normal, normal range of motion Neurologic: grossly normal Psychiatric: judgement/insight normal, mood/affect normal Skin: no rash, no ulcer Cl Kiser M.D. Dec 14, 2018 10:26
[2018-12-14 12:00] VITALS: BP 130/74
--- NOTE | 2018-12-14 12:50 | NUR ---
HAND-OFF: Report given to NEREYDA Curry. Belonging checklist reviewed and signed.
--- NOTE | 2018-12-14 13:05 | NUR ---
NURSE NOTES: pt. admitted from Tele. pt alert and oriented x 4. NO cardiac or respiratory distress at this time. (Pt vitals 134/76 HR67, O296 on 2/L NC, T. 97.9 R 18). Bed in lowest position and lock, call light within reach. Will continue to follow plan of care.
[2018-12-14] MEDS ORDERED: Milk of Magnesia 30ml Ud ORAL PRN (13:12)
[2018-12-14] MEDS ORDERED: HYDROmorphone 1mg/ml Carpuject IVP PRN (13:12)
[2018-12-14] MEDS ORDERED: LORazepam Inj 2mg/ml 1ml IV PRN (13:12)
[2018-12-14] MEDS ORDERED: Miralax 17gm pkt ORAL PRN (13:13)
--- NOTE | 2018-12-14 13:58 | NUR ---
CASE MANAGEMENT: REVIEW 12/14/18 SI: COPD EXACERBATION 98.1 65 20 126/75 98% NC 2L WBC 20 BUN 21 IS: IV SOLUMEDROL Q8HR IV AZITHROMYCIN Q24HR LOVENOX SQ Q24HR ALBUTEROL HHN Q4HR ADVAIR INH Q12HR SINGULAR PO QHS :4E MED SURG UNIT DCP: HOME WHEN MEDICALLY CLEARED
[2018-12-14 16:00] VITALS: BP 149/82
--- NOTE | 2018-12-14 16:37 | NUR ---
NURSE NOTES: Requested breathing treatment as per patient's request.
[2018-12-14] MEDS: Albuterol/Ipratropium 3ml neb HHN PRN ×2 (16:50→20:12)
[2018-12-14] MEDS ORDERED: Enoxaparin 40mg Inj SUBQ SCH (17:00)
--- NOTE | 2018-12-14 19:34 | NUR ---
HAND-OFF: Report given to Lavinia/rn pt in stable condition.
--- NOTE | 2018-12-14 20:02 | NUR ---
NURSE NOTES: PATIENT IN BED, ALERT AND ORIENTED X4. NO COMPLAINTS OF PAIN AT THIS TIME. NO S/S RESPIRATORY DISTRESS NOTED. AMBULATORY. BED IN LOWEST POSITION, CALL LIGHT WITHIN REACH. WILL CONTINUE TO MONITOR.
[2018-12-14 20:14] VITALS: BP 141/80
[2018-12-14] MEDS ORDERED: Azithromycin 500 MG in D5W 275 ML IV SCH (21:00)
[2018-12-14] MEDS ORDERED: Solu-MEDROL 125mg Inj IVP SCH (21:00)
[2018-12-14] MEDS ORDERED: Montelukast 10mg tablet ORAL SCH (21:00)
--- NOTE | 2018-12-14 22:55 | NUR ---
NURSES NOTES: resident is Alert and oriented x 4. able to ambulate independently. no c/o pain or discomfort. positoned comfortably. needs attended and met. offered snacks and fluids as requested. placed call light and light button within easy reach.
[2018-12-15 00:03] VITALS: BP 138/81
[2018-12-15] MEDS: Albuterol/Ipratropium 3ml neb HHN PRN (03:52)
[2018-12-15 04:02] VITALS: BP 134/80
[2018-12-15] MEDS: NovoLOG Insulin Flexpen SUBQ SCH ×2 (06:02→11:46)
--- NOTE | 2018-12-15 07:19 | NUR ---
HAND-OFF: Report given to ANUJ BAUM RN.
--- NOTE | 2018-12-15 07:25 | NUR ---
NURSE NOTES: Received report from NEREYDA Kate. Patient A&Ox4, sitting up in bed eating breakfast. On room air, no signs of distress or labored breathing. IV intact, patent, and saline locked. Bed in lowest position with call light in reach. Will continue with plan of care.
[2018-12-15 08:00] VITALS: BP 145/75
[2018-12-15] MEDS: Docusate 100mg cap ORAL SCH (08:19)
[2018-12-15] MEDS: Solu-MEDROL 125mg Inj IVP SCH (08:19)
--- NOTE | 2018-12-15 08:54 | NUR ---
HAND-OFF: Report given to NEREYDA Romero. Patient in stable condition.
--- NOTE | 2018-12-15 09:00 | NUR ---
NURSE NOTES: Received patient on bed, awake. IV site intact and patent. Bed in low and locked position, call light in reach. No signs of respiratory distress, patient denies pain. Room board updated, will continue to monitor.
[2018-12-15] MEDS: Wixela 250/50 Inhaler - 60 dose INH SCH (09:05)
[2018-12-15] MEDS ORDERED: MEDROL DOSEPAK4 MG ORAL (10:23)
[2018-12-15] MEDS ORDERED: ADVAIR 250-501 EACH INH (10:23)
[2018-12-15] MEDS ORDERED: INCRUSE ELLI62.5 MCG IH (10:23)
[2018-12-15] MEDS ORDERED: SINGULAIR10 MG ORAL (10:23)
[2018-12-15] MEDS ORDERED: AZITHROMYCIN500 MG ORAL (10:23)
[2018-12-15] MEDS ORDERED: ALBUTEROL2.5 MG/3 M INH (10:23)
--- NOTE | 2018-12-15 10:31 | Discharge Summary ---
Discharge Summary Hospital Course Date of Admission Dec 13, 2018 at 09:55 Date of Discharge 12/15/2018 Admitting Diagnosis Acute COPD exacerbation HPI Curtis Andino is a 68 year old male who was admitted on Dec 13, 2018 at 09 :55 for Chronic Obstructive Pulmonary Disease Hospital Course 68 year old male with history of COPD on home oxygen admitted with Acute hypoxic respiratory failure due to COPD/Asthma exacerbation. Admit to telemetry IV methylpred 60 q 6hr--> 60 q12, taper per clinical response, can switch to oral- DC on medrol dose pack IV Azithromycin 500mg daily for 7 days, switch to oral Duonebs LABA/ICS-> continue home Advair hold home Spiriva since getting duonebs here- resume on discharge continue montelukast O2 to keep sats 88-92% monitor vitals, leukocytosis likely from steroids Pre-DM: patient counselled regarding life style modifications pxx: vte ppx: heparin Gi ppx: famotidine Diet: Regular Disposition: Home estimated discharge date: 12/15 on the day of discharge, patient seen and examined, awake and in no distress. Lungs CTA bl, with occasional wheezes, heart: S1S2, no m/r/g, ext: No edema I spent 35 minutes on this encounter. >50% spent on care coordination and counselling. D/W RN Time of this note may not reflect time of encounter Discharge Medications New Medications: Azithromycin (Azithromycin) 500 Mg Tablet 500 MG ORAL DAILY for 3 Days, #3 TAB 0 Refills Methylprednisolone (Methylprednisolone*) 4MG Dspk 4 MG ORAL DIRECTED for 6 Days, #21 EA 0 Refills Day 1: Two tablets before breakfast, one after lunch, one after dinner, and two at bedtime. If started late in the day, take all six tablets at once or divide into two or three doses, unless otherwise directed by prescriber. Day 2: One tablet before breakfast, one after lunch, one after dinner, and two at bedtime Day 3: One tablet before breakfast, one after lunch, one after dinner, and one at bedtime Day 4: One tablet before breakfast, one after lunch, and one at bedtime Day 5: One tablet before breakfast and one at bedtime Day 6: One tablet before breakfast Continued Medications: Albuterol Sulfate* (Albuterol Sulfate Mdi*) 8.5 Gm Hfa.aer.ad 2 PUFF INH Q4H PRN for Shortness of Breath, #1 INH 0 Refills Albuterol Sulfate* (Albuterol Sulfate Hhn*) 2.5 Mg/3 Ml Vial.neb 3 ML INH Q4H PRN for Shortness of Breath for 30 Days, #60 EA (This prescription has been renewed) Fluticasone/Salmeterol (Advair 250-50 Diskus) 1 Each Blst.w.dev 1 PUFF INH EVERY 12 HOURS for 30 Days, #1 EA (This prescription has been renewed ) Montelukast Sodium* (Singulair*) 10 Mg Tablet 10 MG ORAL QHS for 30 Days, #30 TAB (This prescription has been renewed) Umeclidinium [place]urel (Incruse Ellipta) 62.5 Mcg Blst.w.dev 62.5 MCG IH DAILY for 30 Days, #1 EA (This prescription has been renewed) Discharge Condition Upon Discharge: stable Discharge Disposition Patient was discharged to home with services Discharge Diagnoses: (1) Hypoxia (2) Respiratory distress (3) Asthma (4) COPD exacerbation (5) Pre-diabetes Cl Kiser M.D. Dec 15, 2018 10:31
--- NOTE | 2018-12-15 11:16 | NUR ---
DISCHARGE PLANNING: PATIENT HAS BEEN REFERRED FOR HOME HEALTH SERVICES CLINICALS HAVE BEEN FAXED TO [employer] F:[phone] AWAITING A RESPOND CM: TERESA T: [phone] EXT 1876 #1 [facility] #2 DARIO HILARIO
--- NOTE | 2018-12-15 11:33 | NUR ---
DISCHARGED PLANNED: DISCUSSED DISCHARGE WITH PATIENT AT BEDSIDE PATIENT AWARE OF HOME HEALTH NEED [facility] WILL FOLLOW PATIENT IN 24-48HRS T: ANY CONCERNS MINH LAZARO T: [phone] EXT [id number]
--- NOTE | 2018-12-15 11:39 | Cardiology Report ---
APPROVED REPORT EKG Measurement Heart [id number] Sinus rhythm with 1st degree AV block Otherwise normal ECG
--- NOTE | 2018-12-15 13:15 | NUR ---
NURSE NOTES: Patient is discharged. IV removed and site covered. ID band removed and disposed. Personal belongings inventoried and sent with patient. Patient needs met and patient kept comfortable at all times. Patient departed in private vehicle.
--- NOTE | 2018-12-15 16:41 | NUR ---
*-* INSURANCE *-* DISCHARGE SUMMARY HAS BEEN FAXED TO: : [facility] [phone] SPOKE TO :KENDRA ADMINISTRATION INTERN: TERESA:EXT 1886 WILL BE WAITING FOR PT CLINICALS TO REVIEW FOR IN PT STAY FAX TO [phone]
== END 2018-12-15 13:26 | disposition home health service (06) | DRG 189 ==
LOC: EMR 11:20 → EDBEDREQ 13:29 → 2E 13:30 → EDBEDREQ 15:09 → OBSVTOIN 12-13 09:55 → 4E 12-14 13:00
DX: J96.01 Acute respiratory failure with hypoxia (principal); J44.1 Chronic obstructive pulmonary disease with (acute) exacerbation; J44.0 Chronic obstructive pulmonary disease with (acute) lower respiratory infection; J20.9 Acute bronchitis, unspecified; R73.03 Prediabetes; Z23 Encounter for immunization; Z99.81 Dependence on supplemental oxygen
CPT/HCPCS: 36415; 71045; 80048; 80053; 82962; 83036; 84484; 85007; 85025; 90689; 93005; 94640; 94664; 96365; 96374; 99291; J1815; J7620